=== PATIENT | female | born 1995 | race Caucasian/White ===

== ENCOUNTER 2017-10-21 07:38 | Emergency (ER) | payer OTHER ==
--- NOTE | 2017-10-21 08:18 | ED ---
Mumtaz Cali Jennifer, scribed for Marcell Van MD on 10/21/17 at 0804 . Throat Pain/Nasal Congestion - HPI Summary HPI Summary: The patient is a 21 year old female who presents with sore throat since yesterday. She complains that its extremely painful to swallow and she has had a fever. The patient denies runny nose, coughing, and rashes. She denies any recent sexual activity. - History of Current Complaint Chief Complaint: EDThroatPain Time Seen by Provider: 10/21/17 07:44 Hx Obtained From: Patient Onset/Duration: Sudden Onset, Lasting Days - 1 day, Still Present Severity: Moderate Cough: None - Allergies/Home Medications Allergies/Adverse Reactions: Allergies Allergy/AdvReac Type Severity Reaction Status Date / Time No Known Allergies Allergy Verified 10/21/17 07:42 PMH/Surg Hx/FS Hx/Imm Hx Endocrine/Hematology History: Denies: Hx Diabetes Cardiovascular History: Denies: Hx Hypertension Neurological History: Reports: Hx Headaches - Chronic Infectious Disease History: No Infectious Disease History: Denies: Traveled Outside the [place] in Last 30 Days - Family History Known Family History: Negative: Hypertension, Diabetes - Social History Occupation: Student Substance Use Type: Reports: None Review of Systems Positive: Fever Positive: Sore Throat. Negative: Nasal Discharge Negative: Cough Negative: Rash All Other Systems Reviewed And Are Negative: Yes Physical Exam - Summary Physical Exam Summary: Appearance: Well appearing, no pain distress Skin: warm, dry, reflects adequate perfusion Head/face: normal Eyes: EOMI, JERARDO ENT: large exudative tonsils bilaterally Neck: supple, non-tender Respiratory: CTA, breath sounds present Cardiovascular: RRR, pulses symmetrical Abdomen: non-tender, soft Bowel Sounds: present Musculoskeletal: normal, strength/ROM intact Neuro: normal, sensory motor intact, A&Ox3 Triage Information Reviewed: Yes Vital Signs On Initial Exam: Initial Vitals Temp Pulse Resp BP Pulse Ox 99.3 F 98 18 99/62 98 10/21/17 07:39 10/21/17 07:39 10/21/17 07:39 10/21/17 07:39 10/21/17 07:39 Vital Signs Reviewed: Yes Diagnostics - Vital Signs Vital Signs Temp Pulse Resp BP Pulse Ox 10/21/17 07:40 98.9 F 98 16 120/67 99 10/21/17 07:39 99.3 F 98 18 99/62 98 - Laboratory Lab Statement: Any lab studies that have been ordered have been reviewed, and results considered in the medical decision making process. EENT Course/Dx - Course Course Of Treatment: High Centor score. Tx presumptively. Abx and steroid. - Diagnoses Provider Diagnoses: Acute tonsillitis Discharge - Sign-Out/Discharge Documenting (check all that apply): Discharge/Admit/Transfer - Discharge Plan Condition: Good Disposition: HOME Prescriptions: Amoxicillin PO (*) [Amoxicillin 500 MG CAP*] 500 mg PO TID #30 cap Dexamethasone TAB* [Decadron TAB*] 8 mg PO DAILY 3 Days #6 tab Patient Education Materials: Tonsillitis (ED) Forms: *School Release Referrals: [facility] - Konstantin MAR [Primary Care Provider] - Additional Instructions: Drink plenty of fluids. Tylenol/ibuprofen as needed for discomfort. Return if worse, high fever, vomiting, difficulty swallowing or other concerns as discussed. The documentation as recorded by the Mumtaz rodriguez Jennifer accurately reflects the service I personally performed and the decisions made by Rehan carter Kirk, MD.
[2017-10-21 08:26] VITALS: BP 115/65
== END 2017-10-21 08:29 | disposition home or self-care (01) ==
LOC: ED 07:38
DX: J03.90 Acute tonsillitis, unspecified (principal); J02.9 Acute pharyngitis, unspecified; R50.9 Fever, unspecified
CPT/HCPCS: 99282